=== PATIENT | female | born 1980 | race Hispanic/Latino ===

== ENCOUNTER → 2020-09-27 | Outpatient (CLI) | payer BC | LOC: MRI 09:22 | PROVIDERS: ATTEND Specialist | DX: S86.812A Strain of other muscle(s) and tendon(s) at lower leg level, left leg, initial encounter (principal); S83.262A Peripheral tear of lateral meniscus, current injury, left knee, initial encounter ==

== ENCOUNTER → 2020-12-13 | Day surgery (SDC) | payer BC, OTHER ==
[~2020-12-13] MED LIST: ACETAMINOPHEN/CODEINE 300MG - 30MG TAB ONE; BUPIVACAINE HCL 0.5% INJ 30 ML VIAL INJ ONE; DEXAMETHASONE SOD PHOS INJ 4 MG/ML SDV IV ONE; EPHEDRINE SULFATE INJ 50 MG/ML VIAL IV ONE; FENTANYL CITRATE/PF 100MCG/2 ML INJ ONE; KETOROLAC TROMETHAMINE 30 MG/ML VIAL IV ONE; LIDOCAINE HCL 2% LOCAL INJ 5 ML SDV VIAL INJ ONE; MIDAZOLAM HCL 2 MG/2 ML VIAL ONE; MOTRIN200 MG PO; ONDANSETRON HCL INJ 2MG/ML 2ML 2 MG/ML VIAL IV ONE; POVIDONE IODINE 0.05% 0.05 % ML PO ONE; PROAIR HFA INH8.5 GM INH; PROPOFOL IV EMULSION 10 MG/ML 20 ML VIAL IV ONE; SEVOFLURANE INHAL SOLN 250 ML PEN BTL INH ONE; SODIUM CHLORIDE 0.9% 50ML 100 ML ONE
[2020-12-13 09:30] VITALS: BP 120/70
== END | disposition home or self-care (01) ==
LOC: OR 05:21
PROVIDERS: ATTEND Specialist
DX: S83.222A Peripheral tear of medial meniscus, current injury, left knee, initial encounter (principal); S83.262A Peripheral tear of lateral meniscus, current injury, left knee, initial encounter; S83.512A Sprain of anterior cruciate ligament of left knee, initial encounter; M17.12 Unilateral primary osteoarthritis, left knee; M22.42 Chondromalacia patellae, left knee; S82.142A Displaced bicondylar fracture of left tibia, initial encounter for closed fracture; J45.909 Unspecified asthma, uncomplicated; E66.01 Morbid (severe) obesity due to excess calories; D64.9 Anemia, unspecified; R01.1 Cardiac murmur, unspecified; F32.A Depression, unspecified; V49.9XXA Car occupant (driver) (passenger) injured in unspecified traffic accident, initial encounter; Z91.010 Allergy to peanuts; Z91.018 Allergy to other foods; Z01.812 Encounter for preprocedural laboratory examination; Z20.822 Contact with and (suspected) exposure to COVID-19
CPT/HCPCS: 29880; 81025; J0690; J1100; J1885; J2001; J2250; J2405; J2704; J3010; U0002

== ENCOUNTER 2021-01-04 09:56 | Outpatient (RCR) | payer BC ==
[~2021-01-04 09:56] MED LIST changes: -ACETAMINOPHEN/CODEINE 300MG - 30MG TAB ONE; -BUPIVACAINE HCL 0.5% INJ 30 ML VIAL INJ ONE; -DEXAMETHASONE SOD PHOS INJ 4 MG/ML SDV IV ONE; -EPHEDRINE SULFATE INJ 50 MG/ML VIAL IV ONE; -FENTANYL CITRATE/PF 100MCG/2 ML INJ ONE; -KETOROLAC TROMETHAMINE 30 MG/ML VIAL IV ONE; -LIDOCAINE HCL 2% LOCAL INJ 5 ML SDV VIAL INJ ONE; -MIDAZOLAM HCL 2 MG/2 ML VIAL ONE; -ONDANSETRON HCL INJ 2MG/ML 2ML 2 MG/ML VIAL IV ONE; -POVIDONE IODINE 0.05% 0.05 % ML PO ONE; -PROPOFOL IV EMULSION 10 MG/ML 20 ML VIAL IV ONE; -SEVOFLURANE INHAL SOLN 250 ML PEN BTL INH ONE; -SODIUM CHLORIDE 0.9% 50ML 100 ML ONE
== END 2021-01-07 ==
LOC: PT 09:56
PROVIDERS: ATTEND Specialist
DX: S83.222D Peripheral tear of medial meniscus, current injury, left knee, subsequent encounter (principal); S83.512D Sprain of anterior cruciate ligament of left knee, subsequent encounter

== ENCOUNTER → 2021-02-06 | Outpatient (RCR) | payer BC | LOC: PT 01-26 10:47 | PROVIDERS: ATTEND Specialist | DX: S83.222D Peripheral tear of medial meniscus, current injury, left knee, subsequent encounter (principal); S83.512D Sprain of anterior cruciate ligament of left knee, subsequent encounter; M62.81 Muscle weakness (generalized) | CPT/HCPCS: 97139 ==

== ENCOUNTER 2021-02-23 09:56 | Outpatient (RCR) | payer BC | END 2021-03-09 | LOC: PT 09:56 | PROVIDERS: ATTEND Specialist | DX: S83.222D Peripheral tear of medial meniscus, current injury, left knee, subsequent encounter (principal); S83.512D Sprain of anterior cruciate ligament of left knee, subsequent encounter; M62.81 Muscle weakness (generalized) | CPT/HCPCS: 97139 ==